=== PATIENT | male | born 1945 | race Caucasian/White ===

== ENCOUNTER 2017-06-25 04:14 | Inpatient (IN) | payer BC, OTHER ==
[2017-06-25] VITALS (7 sets, daily range): BP systolic 93–128; BP diastolic 48–72
[~2017-06-25] VITALS: Ht 182.9 cm; Wt 76.1 kg
--- NOTE | ~2017-06-25 | 2DMMODE ---
[facility] [address] [place] [address] 2 D/M-MODE ECHOCARDIOGRAM Name: TORRESRIN HINTON Room #: 214-P ADM IN M.R.#: [id number] Admission: 06/25/17 Attend Phys: Priscilla Bauer Discharge: Date of : 47 Date of Service: 06/25/17 1201 Report #: [id number] THIS REPORT FOR: //name// APPROVED REPORT Study performed: 06/25/2017 10:53:44 EXAM: Comprehensive 2D, Doppler, and color-flow Echocardiogram Patient Location: Echo lab Room #: 214 Status: routine BSA: 2.01 HR: 81 bpm BP: 125/65 mmHg Rhythm: Atrial Fibrillation Other Information Study Quality: Good Indications Atrial Fibrillation Hx: CO, CABG, CVA, COPD, PVD 2D Dimensions RVDd: 31.05 mm LVEF(%): 67.00 (>50%) IVSd: 11.05 (7-11mm) LVOT Diam: 22.22 (18-24mm) LVDd: 50.13 mm PWd: 11.25 (7-11mm) Ascending Ao: 36.12 (22-36mm) LVDs: 31.45 (25-40mm) Aortic Root: 34.51 mm Quarles's LVEF: 67.00 % Volumes Left Atrial Volume (Systole) Single Plane 4CH: 68.85 mL Single Plane 2CH: 90.09 mL LA ESV Index: 42.00 mL/m2 Aortic Valve AoV Peak David.: 1.33 m/s AO Peak Gr.: 7.09 mmHg LVOT Max P.76 mmHg LVOT Max V: 0.83 m/s COREY Vmax: 2.42 cm2 Mitral Valve MV Decel. Time: 181.08 ms [facility] [place] [address] 2 D/M-MODE ECHOCARDIOGRAM Name: MACDONALDRIN ROANOKE Room #: 214[facility] IN M.R.#: [id number] Admission: 06/25/17 Attend Phys: Priscilla Bauer Discharge: Date of : 47 Date of Service: 06/25/17 1201 Report #: [id number] E Max David.: 1.04 m/s IVRT: 87.66 ms Pulmonary Valve PV Peak David.: 0.78 m/s PV Peak Gr.: 2.46 mmHg Tricuspid Valve TR Peak David.: 2.25 m/s RAP Estimate: 5.00 mmHg TR Peak Gr.: 20.33 mmHg PA Pressure: 25.00 mmHg Left Ventricle The left ventricle is normal size. There is normal LV segmental wall motion. There is normal left ventricular wall thickness. Left ventricular systolic function is normal. LVEF is 55-60%. This study is not technically sufficient to allow evaluation of the LV diastolic function due to atrial fibrillation. Right Ventricle The right ventricle is normal size. The right ventricular systolic function is normal. Atria Left atrium is mild to moderately dilated. Right atrium is at the upper limits of normal. Aortic Valve Aortic valve leaflets are mildly thickened and calcified. No aortic regurgitation is present. There is no aortic valvular stenosis. Mitral Valve Mild to moderate mitral annular calcification. Mild mitral regurgitation. Tricuspid Valve The tricuspid valve is normal in structure. Mild tricuspid regurgitation. Estimated PAP is 25-30mmHg. Pulmonic Valve The pulmonary valve is normal in structure. Trace pulmonic regurgitation. Great Vessels The aortic root is normal in size. The ascending aorta is normal in size. IVC is normal in size and collapses >50% with [facility] [address] [place] [address] 2 D/M-MODE ECHOCARDIOGRAM Name: TORRESRIN MARY JANE Room #: 214-P [facility] IN M.R.#: [id number] Admission: 06/25/17 Attend Phys: Priscilla Bauer Discharge: Date of : 47 Date of Service: 06/25/17 1201 Report #: [id number] inspiration. Pericardium There is no pericardial effusion. <Conclusion> Left ventricular systolic function is normal. There is normal LV segmental wall motion. LVEF is 55-60%. Both atria are moderately dilated. Aortic valve leaflets are mildly thickened and calcified. No aortic regurgitation or stenosis. Mild to moderate mitral annular calcification. Mild mitral regurgitation. Mild tricuspid regurgitation. Estimated pulmonary artery pressure of 25-30mmHg. There is no pericardial effusion. <ELECTRONICALLY SIGNED> By: Severo Bhat MD, [facility] 06/25/17 1201 120 120 Severo Bhat MD, FACC /INF
--- NOTE | ~2017-06-25 | CATHLAB ---
[facility] [address] [place] [address] INVASIVE PROCEDURE REPORT Name: RIN MACDONALD Room #: 214-P ADM IN M.R.#: [id number] Admission: 06/25/17 Attend Phys: Priscilla Bauer Discharge: Date of : 47 Date of Service: 06/26/171953 Report #: [id number] THIS REPORT FOR: //name// APPROVED REPORT Patient Details Patient Status: In-Patient Room #: The patient is a 72 year-old male Event Personnel Gopal Aguirre [employer] Food Service Supervisor, Shira Campbell, Edgar Spicer RN, Jane Summers RTR, SUPERVISOR RESEARCH SHOP Scrub Procedures Performed 02010 Initial Mod Sed Same Phys/QHP Gr5y 572597 Left Heart Cath Coronaries, Bypass Grafts [id number] LHCCORCABG Hemostasis with Manual pressure Procedure Narrative The patient was brought urgently to the Cardiac Catheterization Laboratory and was prepped and draped in a sterile manner. A 5F 11CM CORDIS sheath was inserted into the right femoral artery. Coronary angiography was performed using coronary diagnostic catheters. The right coronary system was accessed and visualized with a JR 4 catheter. The left coronary system was accessed and visualized with a JL 4 catheter. The left ventricle was accessed and visualized with a Pigtail catheter. Left ventricular/Aortic Valve gradient assessed via catheter pullback. Left ventriculogram was performed in AGEE projection. Hemostasis was obtained with manual pressure following sheath removal without any complications. The patient tolerated the procedure well and there were no complications associated with the procedure. There was no hematoma. Intraoperative Conscious Sedation Sedation start time: 07:44 Case end Time: 09:38 Fentanyl 75.0 mcg Versed 4.0 mg Conscious Sedation time and total contrast amout is the total of peripheral procedure performed by Dr. Gonzales and Cardiac cath performed by Dr. Aguirre. Fluoro Time: 9.40 minutes Dose: DAP 7502.80 cGycm2 836 mGy Contrast Type and Amount: Visipaque 285 ml [facility] [address] [place] [address] INVASIVE PROCEDURE REPORT Name: RIN MACDONALD Room #: 214-P [facility] IN .R.#: [id number] Admission: 06/25/17 Attend Phys: Priscilla Bauer Discharge: Date of : 47 Date of Service: 06/26/171953 Report #: [id number] Hemodynamics The aortic pressure is 189/66 mmHg with a mean of 73 mmHg. The left ventricular pressure is 157/5 mmHg with a mean of mmHg. The left ventricular end diastolic pressure is 19 mmHg. PCI Technique Lesion Percutaneous coronary intervention was performed on the Common Femoral. Conclusion #1 normal left ventricular size with subtle inferior basilar hypokinesis EF is 50-55% #2 there is trivial filling of the [place] left system high-grade left main and proximally occluded circumflex and LAD a few septal perforators are filling #3 [place] right coronary artery occluded #4 MENENDEZ to LAD is intact filling to diffusely diseased LAD which extends around the apex. #5 large vein graft with mild disease filling a diagonal OM branch sequentially no significant occlusive disease #6 large graft patent to the PDA retrograde filling the distal RCA and posterior lateral branch with mild irregularity Recommendations and plan continue aggressive risk factor modification there is no indication for coronary intervention. Has had peripheral intervention at this setting transfer to CCU in stable but guarded condition to continue post peripheral stent protocol. Hemodynamically stable See Dr. Gonzales's peripheral intervention note. <ELECTRONICALLY SIGNED> By: Gopal Aguirre MD, FACC 06/26/171953 53 53 Gopal Aguirre MD, FACC /INF
--- NOTE | ~2017-06-25 | EKG ---
[address] [place] [address] ELECTROCARDIOGRAM REPORT Name: RIN MACDONALD Room #: 214-P ADM IN M.R.#: [id number] Admission: 06/25/17 Attend Phys: Priscilla Price Discharge: Date of : 47 Report #: [id number] THIS REPORT FOR: //name// [facility] ED Test Date: 2017-06-25 Test Time: 04:31:55 Pat Name: RIN MACDONALD Department: Room: 214 Gender: M Electrician Constructor Supervisor: QUENTIN : 1945 Requested By: Cyndi Ortega Order Number: [id number] MD: Severo Bhat Measurements Intervals [place] Rate: 77 P: DE: QRS: -15 QRSD: 100 T: -3 QT: 382 QTc: 433 Interpretive Statements Atrial fibrillation Borderline T abnormalities, inferior leads Compared to ECG 05/09/2015 11:39:39 Sinus rhythm no longer present Electronically Signed On 06-26-2017 8:50:59 OPTIMIZATION CONSULTANT by Seevro Bhat [email or web address] <ELECTRONICALLY SIGNED> By: Severo Bhat MD, [facility] 06/26/17 0850 0431 0 Severo Bhat MD, FACC /EPI
--- NOTE | ~2017-06-25 | EKG ---
[address] [address] ELECTROCARDIOGRAM REPORT Name: RIN MACDONALD Room #: 214-P ADM IN M.R.#: [id number] Admission: 06/25/17 Attend Phys: Priscilla Price Discharge: Date of : 47 Report #: [id number] THIS REPORT FOR: //name// [facility] ED Test Date: 2017-06-25 Test Time: 06:47:24 Pat Name: RIN MACDONALD Department: Room: 214 Gender: M Commercial Construction Project Manager: MAHAMED : 1945 Requested By: José Miguel Swift Order Number: [id number] MD: Alexander Finch Measurements Intervals [place] Rate: 108 P: SC: QRS: -17 QRSD: 99 T: 28 QT: 340 QTc: 456 Interpretive Statements Atrial fibrillation Paired ventricular premature complexes Borderline left axis deviation Compared to ECG 05/09/2015 11:39:39 Ventricular premature complex(es) now present Sinus rhythm no longer present Electronically Signed On 06-25-2017 8:12:09 SIEBEL CRM DEVELOPER by Alexander Finch [email or web address] <ELECTRONICALLY SIGNED> By: Alexander Finch MD 06/25/17811 6 6 Alexander Finch MD /ANNIKA
[~2017-06-25 04:14] MED LIST: ANALGESIC325 MG PO; APAP650 PO; APHEN325 MG PO; ASPIRIN BUFFER325 MG PO; ASPIRIN325 PO; ATENOLOL 50MG T50 MG PO; BENICAR PO; BENICAR20 MG PO; BYSTOLIC10 MG PO; CENTRUM SILVER1 EAC1 PO; CLONAZEPAM PO; COMBIVENT INH; CRESTOR PO; CRESTOR10 MG PO; FENOFIBRATE145 MG; FENOFIBRATE145 MG PO; FISH OIL 1,0001 EAC5 PO; FLEXERIL PO; GLYCOTROL CAPS1 EACH PO; HYTRIN 5 M5 MG/1 CAP PO; K-DUR 20 MEQ T20 MEQ PO; KLOR-CON PO; LASIX 40 MG TAB40 M1 PO; LASIX PO; LORTAB OR; NABUMETONE PO; NITROSTAT0.3 MG SL; NORCO 5-325 TA1 EACH PO; OMEGA-31000 MG PO; PERCOCET 5-3251 EACH PO; PERCOCET PO; PLAVIX 75 MG TA75 MG PO; PROTONIX40 M2 PO; R-TANNA PO; RESTORIL7.5 MG PO; SPIRIVA IH; TERAZOSIN; TERAZOSIN PO; TRICOR PO; TRICOR145 MG PO; VASCEPA1 GM PO; VICODIN ES TAB1 EACH PO; VITAMIN E 400I400 IU PO; VITCB500GO PO
[2017-06-25] MEDS ORDERED: PLAVIX 75 MG TA75 M1 PO (04:30)
[2017-06-25] MEDS ORDERED: ASPIRIN325 PO (04:32)
[2017-06-25 04:54] LABS: HEMATOCRIT 30.7 % (42.0-52.0); HEMOGLOBIN 10.8 gm/dL (14.0-18.0); MCH 36.1 pg (26.0-34.0); MCHC 35.3 g/dL (28.0-37.0); MCV 102.4 fL (80.0-100.0); PLATELET COUNT 181 thou/uL (150-400); RDW 12.5 % (10.5-14.5); WBC 5.1 thou/uL (4.0-11.0)
[2017-06-25 04:59] LABS: ANION GAP 9 mmol/L (7-16); BUN 16 mg/dL (7-18); CALCIUM 8.6 mg/dL (8.5-10.1); CHLORIDE 98 mmol/L (98-107); CO2 25 mmol/L (21-32); CREATININE 1.4 mg/dL (0.7-1.3); GLUCOSE 72 mg/dL (74-106); POTASSIUM 4.3 mmol/L (3.5-5.1); SODIUM 132 mmol/L (136-145)
[2017-06-25 05:06] LABS: APTT 29.8 Seconds (24.5-32.8); INR 1.1; PROTIME 10.8 Seconds (9.3-11.4)
[2017-06-25 05:07] LABS: TROPONIN-I < 0.04 ng/mL (<0.06)
[2017-06-25 05:50] LABS: ABSOLUTE NEUTROPHILS 2.3 thou/uL (1.4-8.2); ATYPICAL LYMPHS 1 %; MACROCYTES 2+
[2017-06-25 08:44] LABS: CHOLESTEROL 110 mg/dL (<200); HDL CHOLESTEROL 30 mg/dL (>40); LDL CHOLESTEROL 35 mg/dL (<100); TC:HDL 3.7 Ratio (Not establshd); TRIGLYCERIDE 226 mg/dL (<150); VLDL 45 mg/dL (<40)
[2017-06-26] VITALS (12 sets, daily range): BP systolic 116–153; BP diastolic 56–167
[2017-06-27] VITALS: BP 125/60
[2017-06-27 03:50] VITALS: BP 114/41
[2017-06-27 04:10] LABS: HEMATOCRIT 30.7 % (42.0-52.0); HEMOGLOBIN 10.8 gm/dL (14.0-18.0); MCH 35.9 pg (26.0-34.0); MCHC 35.1 g/dL (28.0-37.0); MCV 102.2 fL (80.0-100.0); RDW 12.6 % (10.5-14.5); WBC 8.3 thou/uL (4.0-11.0)
[2017-06-27 04:17] LABS: CALCIUM 8.7 mg/dL (8.5-10.1); CREATININE 1.4 mg/dL (0.7-1.3); POTASSIUM 3.4 mmol/L (3.5-5.1)
[2017-06-27 07:18] VITALS: BP 140/64
[2017-06-27] MEDS ORDERED: PRADAXA150 MG PO (08:19)
[2017-06-27] MEDS ORDERED: ATENOLOL 50MG T50 M1 PO (08:19)
[2017-06-27] MEDS ORDERED: PACERONE 200 M200 M1 PO (08:19)
[2017-06-27 10:12] VITALS: BP 140/64
[2017-06-27 10:57] VITALS: BP 135/61
[2017-06-28] MEDS ORDERED: KEFLEX500 M1 PO (09:20)
[2017-06-28] MEDS ORDERED: ULTRAM 50MG TAB50 MG PO (09:24)
== END 2017-06-27 12:06 | disposition home or self-care (01) | DRG 254 ==
LOC: ER 04:14 → 2N 07:14 → EROBS 07:14 → 2N 07:58 → ENTRNSPT 06-27 11:39 → EDTRNSPTSTS 06-27 11:42 → 2N 06-27 12:06
PROVIDERS: Emergency Medicine; Hospitalist; Internal Medicine Cardiovascular Disease
PROC: B4161ZZ Fluoroscopy of Right Renal Artery using Low Osmolar Contrast (ICD-10-PCS; principal; 2017-06-26)
PROC: 047H3DZ Dilation of Right External Iliac Artery with Intraluminal Device, Percutaneous Approach (ICD-10-PCS; principal; 2017-06-26)
PROC: 4A023N7 Measurement of Cardiac Sampling and Pressure, Left Heart, Percutaneous Approach (ICD-10-PCS; 2017-06-26)
PROC: B2181ZZ Fluoroscopy of Left Internal Mammary Bypass Graft using Low Osmolar Contrast (ICD-10-PCS; 2017-06-26)
PROC: B2111ZZ Fluoroscopy of Multiple Coronary Arteries using Low Osmolar Contrast (ICD-10-PCS; 2017-06-26)
PROC: B2151ZZ Fluoroscopy of Left Heart using Low Osmolar Contrast (ICD-10-PCS; 2017-06-26)
DX: I73.9 Peripheral vascular disease, unspecified (principal); I48.91 Unspecified atrial fibrillation; E78.5 Hyperlipidemia, unspecified; J44.9 Chronic obstructive pulmonary disease, unspecified; I10 Essential (primary) hypertension; G25.81 Restless legs syndrome; F17.210 Nicotine dependence, cigarettes, uncomplicated; E78.00 Pure hypercholesterolemia, unspecified; I25.10 Atherosclerotic heart disease of native coronary artery without angina pectoris; Z95.1 Presence of aortocoronary bypass graft; Z86.73 Personal history of transient ischemic attack (TIA), and cerebral infarction without residual deficits; Z90.49 Acquired absence of other specified parts of digestive tract; I25.2 Old myocardial infarction; Z87.11 Personal history of peptic ulcer disease; Z79.899 Other long term (current) drug therapy; Z88.8 Allergy status to other drugs, medicaments and biological substances; Z71.6 Tobacco abuse counseling
CPT/HCPCS: 10194

== ENCOUNTER 2017-06-28 06:44 | Emergency (ER) | payer BC, OTHER ==
[~2017-06-28] VITALS: Ht 182.9 cm; Wt 79.4 kg
[~2017-06-28 06:44] MED LIST changes: +ATENOLOL 50MG T50 M1 PO; +PACERONE 200 M200 M1 PO; +PLAVIX 75 MG TA75 M1 PO; +PRADAXA150 MG PO
[2017-06-28 06:59] VITALS: BP 134/96
[2017-06-28 07:42] LABS: HEMATOCRIT 28.7 % (42.0-52.0); HEMOGLOBIN 9.9 gm/dL (14.0-18.0); MCH 35.3 pg (26.0-34.0); MCHC 34.6 g/dL (28.0-37.0); PLATELET COUNT 172 thou/uL (150-400); RBC 2.81 mil/uL (4.50-6.00); RDW 12.7 % (10.5-14.5); WBC 5.4 thou/uL (4.0-11.0)
[2017-06-28 07:48] LABS: CALCIUM 8.3 mg/dL (8.5-10.1); CREATININE 1.3 mg/dL (0.7-1.3); POTASSIUM 3.6 mmol/L (3.5-5.1)
[2017-06-28 07:54] LABS: ALBUMIN 3.5 g/dL (3.4-5.0); DIRECT BILIRUBIN 0.2 mg/dL (<0.1-0.3); MAGNESIUM 1.8 mg/dL (1.8-2.4); TOTAL BILIRUBIN 0.4 mg/dL (<0.1-1.0); TOTAL PROTEIN 6.4 g/dL (6.4-8.2)
[2017-06-28 08:00] LABS: APTT 58.5 Seconds (24.5-32.8); INR 1.2
[2017-06-28 08:43] LABS: ABSOLUTE NEUTROPHILS 3.9 thou/uL (1.4-8.2)
[2017-06-28 08:44] LABS: PLATELET ESTIMATE NORMAL
[2017-06-28] MEDS ORDERED: KEFLEX500 M1 PO (09:20)
[2017-06-28] MEDS ORDERED: ULTRAM 50MG TAB50 MG PO (09:24)
== END 2017-06-28 09:55 | disposition home or self-care (01) ==
LOC: ER 06:44
PROVIDERS: Emergency Medicine
DX: M79.605 Pain in left leg (principal); M79.604 Pain in right leg; I73.9 Peripheral vascular disease, unspecified; E78.5 Hyperlipidemia, unspecified; I10 Essential (primary) hypertension; J44.9 Chronic obstructive pulmonary disease, unspecified; I21.9 Acute myocardial infarction, unspecified; F17.210 Nicotine dependence, cigarettes, uncomplicated; Z90.49 Acquired absence of other specified parts of digestive tract; Z88.8 Allergy status to other drugs, medicaments and biological substances

== ENCOUNTER 2017-09-06 14:35 | Emergency (ER) | payer BC, OTHER ==
[~2017-09-06] VITALS: Ht 182.9 cm; Wt 79.4 kg
[~2017-09-06 14:35] MED LIST changes: +KEFLEX500 M1 PO; +ULTRAM 50MG TAB50 MG PO
[2017-09-06] MEDS ORDERED: PACERONE 200 M200 M1 PO (14:54)
[2017-09-06] MEDS ORDERED: CRESTOR20 MG PO (14:56)
[2017-09-06 16:40] VITALS: BP 131/54
== END 2017-09-06 16:41 | disposition home or self-care (01) ==
LOC: ER 14:35
DX: I83.015 Varicose veins of right lower extremity with ulcer other part of foot (principal); I10 Essential (primary) hypertension; J44.9 Chronic obstructive pulmonary disease, unspecified; I25.2 Old myocardial infarction; Z95.1 Presence of aortocoronary bypass graft; F17.210 Nicotine dependence, cigarettes, uncomplicated

== ENCOUNTER → 2017-11-22 | Outpatient (CLI) | payer BC, OTHER ==
[~2017-11-22] MED LIST changes: +CRESTOR20 MG PO
[2017-11-22 09:43] LABS: CALCIUM 8.4 mg/dL (8.5-10.1); CREATININE 1.2 mg/dL (0.7-1.3); POTASSIUM 4.6 mmol/L (3.5-5.1)
== END ==
LOC: CAT 08:48
PROVIDERS: Nuclear Medicine Nuclear Cardiology
DX: Z01.812 Encounter for preprocedural laboratory examination (principal); I65.23 Occlusion and stenosis of bilateral carotid arteries; I25.10 Atherosclerotic heart disease of native coronary artery without angina pectoris; I77.1 Stricture of artery

== ENCOUNTER 2018-03-05 02:50 | Emergency (ER) | payer BC, OTHER ==
[~2018-03-05] VITALS: Ht 182.9 cm; Wt 77.7 kg
--- NOTE | ~2018-03-05 | EKG ---
[place] [address] [facility] [place] [address] ELECTROCARDIOGRAM REPORT Name: RIN MACDONALD [id number] Admission: 03/05/18 Attend Phys: Discharge: 03/05/18 Date of : 47 Report #: [id number] THIS REPORT FOR: //name// [facility] ED Test Date: 2018-03-05 Test Time: 03:35:54 Pat Name: RIN MACDONALD Department: Room: Gender: M Terminal System Operator: g : 1945 Requested By: Ni Clark Order Number: [id number] MD: Severo Bhat Measurements Intervals [place] Rate: 55 P: 14 WI: 217 QRS: -21 QRSD: 120 T: -1 QT: 497 QTc: 476 Interpretive Statements Sinus bradycardia Borderline prolonged WI interval Nonspecific intraventricular conduction delay Nonspecific ST and T wave abnormality Baseline wander in lead(s) V1 Compared to ECG 06/25/2017 06:47:24 Sinus rhythm has replaced atrial fibrillation Electronically Signed On 03-05-2018 9:18:04 CDT by Severo Bhat [email or web address] <ELECTRONICALLY SIGNED> By: Severo Bhat MD, FACC 03/05/18 0918 0335 0335 Severo Bhat MD, FAC /EPI
[2018-03-05 04:12] LABS: ABSOLUTE NEUTROPHILS 2.8 thou/uL (1.4-8.2); HEMATOCRIT 28.3 % (42.0-52.0); LYMPHOCYTES 18.1 % (24.0-44.0); MCH 37.4 pg (26.0-34.0); MCHC 35.5 g/dL (28.0-37.0); MCV 105.4 fL (80.0-100.0); MONOCYTES 10.6 % (1.0-8.0); PLATELET COUNT 139 thou/uL (150-400); POLYS 63.3 % (36.0-66.0); RBC 2.68 mil/uL (4.50-6.00); RDW 14.1 % (10.5-14.5); WBC 4.4 thou/uL (4.0-11.0)
[2018-03-05 04:21] LABS: ANION GAP 9 mmol/L (7-16); BUN 10 mg/dL (7-18); CALCIUM 8.6 mg/dL (8.5-10.1); CHLORIDE 99 mmol/L (98-107); CO2 23 mmol/L (21-32); CREATININE 1.2 mg/dL (0.7-1.3); GLUCOSE 111 mg/dL (74-106); POTASSIUM 4.5 mmol/L (3.5-5.1); SODIUM 131 mmol/L (136-145)
[2018-03-05 04:30] LABS: TROPONIN-I <0.06 ng/mL (<0.06)
[2018-03-05 05:07] VITALS: BP 156/58
== END 2018-03-05 05:27 | disposition home or self-care (01) ==
LOC: ER 02:50
PROVIDERS: Student in an Organized Health Care Education/Training Program
DX: R20.2 Paresthesia of skin (principal); F17.210 Nicotine dependence, cigarettes, uncomplicated; E78.5 Hyperlipidemia, unspecified; I10 Essential (primary) hypertension; J44.9 Chronic obstructive pulmonary disease, unspecified; G25.81 Restless legs syndrome; I73.9 Peripheral vascular disease, unspecified; Z88.8 Allergy status to other drugs, medicaments and biological substances; Z90.49 Acquired absence of other specified parts of digestive tract; Z86.73 Personal history of transient ischemic attack (TIA), and cerebral infarction without residual deficits; Z95.5 Presence of coronary angioplasty implant and graft

== ENCOUNTER → 2018-10-02 | Outpatient (CLI) | payer OTHER ==
[2018-10-02 11:36] LABS: CREATININE 1.4 mg/dL (0.7-1.3)
== END ==
LOC: CAT 10:33
PROVIDERS: Internal Medicine Cardiovascular Disease
DX: I72.4 Aneurysm of artery of lower extremity (principal); I71.4 Abdominal aortic aneurysm, without rupture; N26.1 Atrophy of kidney (terminal)

== ENCOUNTER 2018-10-27 05:30 | Inpatient (IN) | payer OTHER ==
[2018-10-21 10:57] LABS: ABSOLUTE NEUTROPHILS 4.3 thou/uL (1.4-8.2); BASOPHILS 0.6 % (0.0-2.0); EOSINOPHILS 2.7 % (0.0-3.0); HEMATOCRIT 32.6 % (42.0-52.0); HEMOGLOBIN 11.3 gm/dL (14.0-18.0); LYMPHOCYTES 18.1 % (24.0-44.0); MCH 35.4 pg (26.0-34.0); MCHC 34.8 g/dL (28.0-37.0); MCV 101.6 fL (80.0-100.0); MONOCYTES 11.1 % (1.0-8.0); PLATELET COUNT 163 thou/uL (150-400); POLYS 67.5 % (36.0-66.0); RBC 3.21 mil/uL (4.50-6.00); RDW 13.1 % (10.5-14.5); WBC 6.3 thou/uL (4.0-11.0)
[2018-10-21 10:59] LABS: URINE BILIRUBIN NEGATIVE (Negative); URINE BLOOD 1+ (Negative); URINE CLARITY CLEAR; URINE COLOR YELLOW; URINE GLUCOSE-RANDOM* NEGATIVE (Negative); URINE KETONES NEGATIVE (Negative); URINE LEUKOCYTES-REFLEX NEGATIVE (Negative); URINE NITRITE-REFLEX NEGATIVE (Negative); URINE PROTEIN (DIPSTICK) 2+ (Negative); URINE SPECIFIC GRAVITY 1.015 (1.005-1.035); URINE UROBILINOGEN 0.2 E.U./dl (0.2-1.0)
[2018-10-21 11:10] LABS: APTT 27.7 Seconds (24.5-32.8); PROTIME 10.3 Seconds (9.3-11.4)
[2018-10-21 11:11] LABS: BACTERIA-REFLEX 1-9 Few /HPF (None Seen); CASTS None Seen /LPF (None Seen); CRYSTALS None Seen /LPF (None Seen); MUCUS 0-3 Light strn/LPF (None Seen); SQUAMOUS 4-10 Moderate /LPF (0-3); URINE RBC 3-10 Few /HPF (0-2); URINE WBC-REFLEX 0-5 Rare /HPF (0-5)
[2018-10-21 11:16] LABS: ALBUMIN 3.5 g/dL (3.4-5.0); CALCIUM 8.9 mg/dL (8.5-10.1); CREATININE 1.3 mg/dL (0.7-1.3); POTASSIUM 4.3 mmol/L (3.5-5.1); TOTAL BILIRUBIN 0.3 mg/dL (<0.1-1.0); TOTAL PROTEIN 6.5 g/dL (6.4-8.2)
--- NOTE | 2018-10-21 17:00 | EKG ---
[place] [address] [facility] [place] [address] ELECTROCARDIOGRAM REPORT Name: TORRESRIN HINTON Room #: PRE IN .R.#: [id number] ������������������ Admission: ������������������ Attend Phys: Jefferson Mcintyre MD Discharge: ������������������ Date of : 47 Report #: [id number] ����������������������������������������������������������������� [id number] THIS REPORT FOR: //name// [facility] Test Date: 2018-10-21 Test Time: 10:51:14 Pat Name: RIN MACDONALD Department: Room: Gender: M Medical Device: chrissie hopkins : 1945 Requested By: Jefferson Mcintyre Order Number: [id number] MD: Severo Bhat Measurements Intervals [place] Rate: 58 P: 11 UT: 204 QRS: -39 QRSD: 121 T: -19 QT: 470 QTc: 462 Interpretive Statements Sinus bradycardia with first-degree AV block Nonspecific intraventricular conduction delay Compared to ECG 03/05/2018 03:35:54 No significant change was found Electronically Signed On 10-21-2018 17:00:43 CDT by Severo Bhat [email or web address] ��������������������������������������������� <ELECTRONICALLY SIGNED> ���������������������������������������� By: Severo Bhat MD, [facility] ��������������������������������������������� 10/21/18 1700 1051 105 Severo Bhat MD, [facility] /EPI
[2018-10-27] VITALS (21 sets, daily range): BP systolic 86–161; BP diastolic 36–92
[~2018-10-27] VITALS: Ht 182.9 cm; Wt 81.6 kg
[~2018-10-27 05:30] MED LIST changes: +ASPIR 8181 MG PO; +BENICAR40 MG PO; +CENTRUM SILVER1 EAC4 PO; +[UNRECOGNIZED DRUG - CODE] PO
--- NOTE | 2018-10-27 17:38 | NUR ---
PT IS SLEEPY WITH POST SURGERY . POST AORTIC GRAFT STENT. RIGHT RADIAL ART LINE. GROIN SITE DRY AND INTACT BILATERAL NO BLEEDING OR HEMATOMA NOTED. LUNGS ARE CLEAR. ABDOMEN IS SOFT BOWEL SOUNDS HYPOACTIVE. SINUS RHYTHM ON THE INVESTMENT ASSOCIATE. PT TEMP 94 WARMING BLANKET ON PT AT THIS TIME. VENCES TO DD WITH DEEPAK URINE PRESENT. VS STABLE. AT BEDSIDE VISITING WILL CONTINUE TO MONITOR AND ASSESS PER NURSING
[2018-10-28] VITALS (12 sets, daily range): BP systolic 113–165; BP diastolic 36–67
--- NOTE | 2018-10-28 05:00 | NUR ---
PT REMAINS A&OX1-2. PT SR ON MONITOR. PT HAS BEEN PROGRESSIVELY BECOMMING MORE IMPULSIVE, FIGITY, AGITATED, RESTLESS, ANXIOUS. PT PULLED OUT A-LINE. HAS BEEN PICKING OFF TELE PATCHES. DEAN GROIN SITES FROM AAA REPAIR REMAIN CDI, SOFT BUT BRUISING, PT PEDAL PULSES 1+. PT HAD BEEN ON AND OFF CARDENE GTT TONIGHT. CONTINUES ON NS IV MAINTENANCE.
[2018-10-28 05:27] LABS: HEMATOCRIT 28.7 % (42.0-52.0); HEMOGLOBIN 9.8 gm/dL (14.0-18.0); MCH 35.3 pg (26.0-34.0); MCHC 34.2 g/dL (28.0-37.0); MCV 103.5 fL (80.0-100.0); RBC 2.78 mil/uL (4.50-6.00); RDW 13.4 % (10.5-14.5); WBC 9.7 thou/uL (4.0-11.0)
[2018-10-28 05:47] LABS: CALCIUM 7.9 mg/dL (8.5-10.1); CREATININE 1.4 mg/dL (0.7-1.3); POTASSIUM 4.9 mmol/L (3.5-5.1)
--- NOTE | 2018-10-28 07:00 | NUR ---
PT IS CONFUSED TRYING TO GET OUT OF BED . IMPULSIVE AND FEDGETY THIS AM. HE STATES HE IS AT A HOTEL AND IS REORIENTATION GIVEN BUT INSIST ON IMPULSIVELY GETTING OUT OF BED WHEN INSTRUCTED HE IS AT THE HOSPITAL. NOTIFIED DR. LONDON AND RESTRAINT ORDER OBTAINED AND PLACED HIM IN DUE FOR HIS SAFETY AT THIS TIME. REORIENTATION DONE NOTIFIED OF RESTRAINTS FOR HIS SAFETY AND SHE IS COMING TO SEE HIM THIS AM. STATES HIS IS DOWN IN THE KITCHEN . RN REOIENTED PT THAT HE IS IN HOSPITAL AND SHE IS COMING TO VISIT HIM.
--- NOTE | 2018-10-28 15:22 | NUR ---
PT ADMITTED RELATED TO S/P AAA STENT IMPLANT; POST OP DELIRIUM/CONFUSION. CM REVIEWED CHART AND SPOKE WITH CARE TEAM. CM MET WITH PT AT BEDSIDE THIS DAY. PT IS A&O X4. CM ROLE INTRODUCED. PT AND SPOUSE INDICATED THAT THEY LIVE IN A SPLIT LEVEL HOUSE WITH 6 STEPS TO ENTER AND TWO SETS OF 6 STEPS INSIDE. 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 THEY INDICATED NO HOME HEALTH HISTORY. PT IS S/P AAA AND IS HAVING SOME CONFUSION HE IS CURRENTLY IN REST[place]INTS. PLAN IS FOR PT TO RETURN HOME ONCE MEDICALLY STABLE. CM TO FOLLOW INDICATED WITH DC PLANNING.
--- NOTE | 2018-10-28 16:31 | NUR ---
PT IS ALERT TO SELF AND TIME. WITH CONFUSION AT PLACE. IS IMPULSIVE TRIES TO GET OUT OF BED. AT BEDSIDE WITH PT. REORIENTATION GIVEN TO PT PER NURSING. FORGETFULL AND CONFUSED AND IMPULSIVE. REMAINS IN [place] FOR PT SAFETY AT THIS TIME. LUNGS ARE CLEAR. SINUS RHYTHM ON THE MONITOR. ON A CARDIAC DIET. VENCES TO DD WITH DEEPAK URINE PRESENT. GROIN SITES DRESSSING DRY INTACT WITH BILATERAL BRUISING NOTED. WILL CONTINUE TO ASSES AND MONITOR PER NURSING
[2018-10-29] VITALS (21 sets, daily range): BP systolic 122–182; BP diastolic 49–73
--- NOTE | 2018-10-29 00:26 | NUR ---
PT VENCES CATHETER REMOVED. PT TOLERATED WELL
--- NOTE | 2018-10-29 01:56 | NUR ---
POST VENCES CATHETER REMOVAL VOID COMPLETE 225ML URINE OUT WITHOUT DIFFICULTY
--- NOTE | 2018-10-29 04:23 | NUR ---
PT CURRENTLY RESTING IN BED. REMAINS A&O X 1-2. PT SR ON MONITOR. PT HAS HAD A COUPLE ELEVATED BP READINGS BUT ALSO AT TIMES OF RESTLESSNESS. PT AFEBRILE. PT REMAINS ON 2L NC SATS 98%. CONTINUES WITH MAINTENANCE IVFs. PT VOIDING PER URINAL NOW. DEAN GROIN SITES REMAIN SOFT WITH DSG INTACT OLD DRIED DRAINAGE AND SURROUNDING BRUISING. NO C/O PAIN DURING SHIFT.
--- NOTE | 2018-10-29 13:46 | NUR ---
Pt dcing home today with outpt f/u. Therapy evals reviewed. Pt to use rollar walker at home and they do have one. They have a modified shower with a bench as well. Pt's feels pt is close to his functional and cognitive baseline. HH referral declined. Encouragement given to contact his pcp office for f/u appt and should he have ongoing weakness or confusion at home. Case discussed with nursing. Pt to f/u with CTS as an outpt as well. Case closed.
--- NOTE | 2018-10-29 16:32 | NUR ---
Pt was discharged home today. Pt was evaluated by speech therapist, PT and OT. Ryann from case management also came by and visited with patient and his about discharge needs. Pt has tolerated being up in the chair and ambulated with PT. Maintaining O2 sat on room air. Voiding without difficulty. No report of pain. Bilateral groin incisions are intac No apparent bleeding or hematoma. Reviewed discharge instructions with the patient and his . Both verbalized understanding. Pt discharged home. Pt escorted in wheelchair to car by charge nurse Martha Lockwood. See discharge information.
--- NOTE | 2018-11-02 09:01 | O ---
[facility] [place] [address] OPERATIVE REPORT Name: RIN MACDONALD Room #: 245-P [facility] IN M.R.#: [id number] Admission: 10/27/18 ������������������ Attend Phys: Jefferson Mcintyre MD Discharge: 10/29/18 ������������������ Date of : 47 Report #: [id number] THIS REPORT FOR: //name// CC: Jefferson Mackey DATE OF SERVICE: 10/27/2018 PREOPERATIVE DIAGNOSIS: Abdominal aortic aneurysm. POSTOPERATIVE DIAGNOSIS: Abdominal aortic aneurysm. OPERATION: Stent graft implant to treat infrarenal abdominal aortic aneurysm. SURGEON: Jefferson Mcintyre MD and Dr. Chuy Gonzales. ANESTHESIA: General. INDICATIONS: The patient is a 73-year-old who 18 years ago had an AneuRx stent graft implant for an infrarenal abdominal aortic aneurysm. This stent graft has migrated over time, and the proximal portion is no longer in contact with the vessel wall creating an obvious type 1 leak, but essentially leaving an untreated aneurysm. The patient has also lost the flow in the left renal artery due to the previous stent graft implant, which is ironic now that the graft has migrated distally. Peripherally as well, the patient has important calcific atherosclerotic disease and the femoral arteries appear aneurysmal. TECHNIQUE: After general anesthesia was established, incisions were made in the groins to expose the femoral arteries. The previous operative note states that a patch graft was done after a femoral endarterectomy on the left, but my direct observation suggests that this procedure was done on the right side. On the right side, because of the prosthetic patch graft and the extent of the previous dissection and procedure, we chose to place a pursestring in the patch and used the small sheath through this pursestring. On the left side, the common femoral was a bit aneurysmal with intense scarring and the superficial femoral artery, although calcific, appeared to be of satisfactory caliber to permit us to use this as the entry vessel. In any event, 10,000 units of heparin were given. On the right side, a pursestring suture was placed and through it, the Amplatz needle, guidewire and 6-[place]er sheaths were placed and then the J-wire was advanced with the Kumpe catheter over it and then this was exchanged for the Deanne wire. On the left side, the superficial femoral artery was controlled, an arteriotomy was made after the artery had been entered with the initial Amplatz needle [facility] [address] [place] [address] OPERATIVE REPORT Name: RIN MACDONALD Room #: 245-P DIS IN M.R.#: [id number] Admission: 10/27/18 ������������������ Attend Phys: Jefferson Mcintyre MD Discharge: 10/29/18 ������������������ Date of : 47 Report #: [id number] guidewire and catheter and then ultimately an 18-[place] sheath was placed over the Deanne wire. Our initial attempt was to stack cuffs from the previous AneuRx graft up to the renal arteries. A 32 mm cuff and then the 36 mm cuff were placed sequentially from just above the flow divider of the previous AneuRx graft. The proximal extent was dictated by the right renal artery. The right renal artery was identified using visceral catheter and then a guidewire and guiding catheter were placed into this vessel through the right side and then the proximal cuff was ejected. The proximal cuff appeared to ride slightly high and so this right renal artery was accessed using another visceral catheter from above the cuff and then sequentially placing guidewire, guiding catheter and ultimately balloon dilatation followed by a 6-mm stent, which was over-distended to 7 mm to maintain good patency of the right renal artery. With all of the stents in place, an arteriogram was done. Unfortunately, this demonstrated a leak at the distal level which suggested either degeneration of the old AneuRx graft or inadequate coverage. We felt that we had only 1 mm of extra coverage to obtain and that even if we achieve this, there would still be the risk of degeneration of the material. As such, we elected to use an iliac branch device and build both up and down from this to completely re-align the old AneuRx graft. This was accomplished by placing a 23 mm iliac branch device through the 18-[place] sheath on the left side. The device was opened just above the flow divider of the old AneuRx graft. Because the 23 was not going to have good opposition, we were able to pull the graft down a bit using the noncompliant balloon by distending that within the graft above the flow divider and pulling distally. We pulled this device down as far as we could, and then through the right side, the contralateral gate was cannulated and then a long contralateral component was placed in the contralateral gate down into the right iliac artery. A retrograde sheath shot was done to illustrate that there was no right hypogastric to be concerned about. With this device in place, the Compliant balloon was used to fully deploy it in the contralateral gate. The balloon was also used to help us place the proximal device using the markers on the graft and the marker from the right renal stent. We placed a 28 mm cuff deployed against the balloon, and this was placed to provide good seal from the iliac branch device up to the proximal end of the old stent graft, although the initial stent graft was 36, the artery itself on the arteriogram measured approximately 28 and measured somewhat less by virtue of the measurements that we could do in the laborer concrete plant, and we thought a 28 graft would be optimal in terms of both diameter and length for the situation. This graft was deployed and then the balloon was used to fully expand. On the [facility] [address] [place] [address] OPERATIVE REPORT Name: RIN MACDONALD Room #: 245-P [facility] IN M.R.#: [id number] Admission: 10/27/18 ������������������ Attend Phys: Jefferson Mcintyre MD Discharge: 10/29/18 ������������������ Date of : 47 Report #: [id number] left side, the iliac extension was opened down into the common iliac, and this graft was fully deployed using the balloon to fully expand it. With all of the devices placed and the grafts fully expanded with the balloons, then a final arteriogram was done that showed good patency of the renal artery and no evidence of type 1 leak. With all of this accomplished, the sheaths and guidewires were removed on the right side. The pursestrings were sufficient to close the aperture in the vessel, and on the left side, an interrupted Prolene was used to close a highly calcified superficial femoral artery. At the end of the case, both feet were warm and pink. Protamine was given to reverse the heparin. Hemostasis was ascertained, and the wound was closed in layers. The patient was taken to the recovery area in good condition having tolerated the procedure well. All counts reported as correct. ��������������������������������������������� <ELECTRONICALLY SIGNED> ���������������������������������������� By: Jefferson Mcintyre MD ��������������������������������������������� 11/02/18 0901 0840 0926 Jefferson Mcintyre MD /corey
== END 2018-10-29 16:32 | disposition home or self-care (01) | DRG 268 ==
LOC: ICU 05:30 → TBA 05:30 → PRE 05:58 → ICU 16:24
PROVIDERS: Physician Assistant; ADMIT Surgery Vascular Surgery
DX: I71.4 Abdominal aortic aneurysm, without rupture (principal); G92 Toxic encephalopathy; E43 Unspecified severe protein-calorie malnutrition; I25.10 Atherosclerotic heart disease of native coronary artery without angina pectoris; I10 Essential (primary) hypertension; E78.5 Hyperlipidemia, unspecified; J44.9 Chronic obstructive pulmonary disease, unspecified; I73.9 Peripheral vascular disease, unspecified; I48.2 Chronic atrial fibrillation; G25.81 Restless legs syndrome; R41.0 Disorientation, unspecified; Z82.49 Family history of ischemic heart disease and other diseases of the circulatory system; Z86.73 Personal history of transient ischemic attack (TIA), and cerebral infarction without residual deficits; Z95.820 Peripheral vascular angioplasty status with implants and grafts; I25.2 Old myocardial infarction; Z79.82 Long term (current) use of aspirin; Z79.899 Other long term (current) drug therapy; Z90.49 Acquired absence of other specified parts of digestive tract; Z95.1 Presence of aortocoronary bypass graft; Z87.11 Personal history of peptic ulcer disease
CPT/HCPCS: 10078; 47375; 48888; 50010; 50101; 50386; 50455; 51078; 51751; 52287; 54118; 56524; 56526; 56527; 56529; 56531; 56668; 56760; 57093; 62110; 62900; 65020; 65040; 70005

== ENCOUNTER → 2018-11-28 | Outpatient (CLI) | payer OTHER ==
[2018-11-28 09:26] LABS: CREATININE 1.3 mg/dL (0.7-1.3)
--- NOTE | 2018-11-28 11:38 | NUR ---
PT IN CV FOR IV FLUIDS FOR CT SCAN. 18 G STARTED IN RIGHT AC. IV PATENT. NO COMPLICATIONS. 1 L NS INFUSED PRIOR TO CT PROCEDURE. PT RECEIVED 1 L NS POST PROCEDURE WELL. IV DISCONTINUED AFTER INFUSION. CATHETER INTACT. BLEEDING STOPPED. HEMOSTASIS ACHIENVED. PT AMBULATORY WITH STEADY GAIT.
== END ==
LOC: CAT 11-25 14:09
PROVIDERS: Nuclear Medicine Nuclear Cardiology
DX: Z01.812 Encounter for preprocedural laboratory examination (principal); I71.4 Abdominal aortic aneurysm, without rupture; I72.4 Aneurysm of artery of lower extremity; K55.1 Chronic vascular disorders of intestine; M47.819 Spondylosis without myelopathy or radiculopathy, site unspecified; N26.1 Atrophy of kidney (terminal); N28.1 Cyst of kidney, acquired; N28.0 Ischemia and infarction of kidney; I70.8 Atherosclerosis of other arteries; Z95.828 Presence of other vascular implants and grafts; Z88.8 Allergy status to other drugs, medicaments and biological substances

== ENCOUNTER → 2019-05-26 | Outpatient (CLI) | payer OTHER | LOC: SJCVC 08:30 | DX: E78.00 Pure hypercholesterolemia, unspecified (principal) ==

== ENCOUNTER → 2019-09-11 | Outpatient (CLI) | payer OTHER | LOC: ULTRA 16:01 | DX: N43.3 Hydrocele, unspecified (principal); N50.89 Other specified disorders of the male genital organs ==

== ENCOUNTER → 2019-12-15 | Outpatient (CLI) | payer OTHER | LOC: SJCVCIMAG 08:35 | PROVIDERS: ATTEND Internal Medicine Cardiovascular Disease | DX: I70.203 Unspecified atherosclerosis of native arteries of extremities, bilateral legs (principal); R94.31 Abnormal electrocardiogram [ECG] [EKG]; R00.1 Bradycardia, unspecified; I25.10 Atherosclerotic heart disease of native coronary artery without angina pectoris; I48.0 Paroxysmal atrial fibrillation; I10 Essential (primary) hypertension; I70.1 Atherosclerosis of renal artery; E78.00 Pure hypercholesterolemia, unspecified; J44.9 Chronic obstructive pulmonary disease, unspecified; F17.210 Nicotine dependence, cigarettes, uncomplicated; Z95.1 Presence of aortocoronary bypass graft; Z95.828 Presence of other vascular implants and grafts ==

== ENCOUNTER → 2019-12-21 | Outpatient (CLI) | payer OTHER ==
[2019-12-21 11:22] LABS: CALCIUM 8.5 mg/dL (8.5-10.1); CREATININE 1.3 mg/dL (0.7-1.3); POTASSIUM 4.4 mmol/L (3.5-5.1)
== END ==
LOC: CAT 09:11
PROVIDERS: ATTEND Internal Medicine Cardiovascular Disease
DX: I71.4 Abdominal aortic aneurysm, without rupture (principal); I70.1 Atherosclerosis of renal artery; I72.4 Aneurysm of artery of lower extremity

== ENCOUNTER → 2020-01-26 | Outpatient (CLI) | payer OTHER | LOC: SJCVCIMAG 07:25 | PROVIDERS: ATTEND Internal Medicine Cardiovascular Disease | DX: I48.0 Paroxysmal atrial fibrillation (principal); I25.10 Atherosclerotic heart disease of native coronary artery without angina pectoris; E78.5 Hyperlipidemia, unspecified; J44.9 Chronic obstructive pulmonary disease, unspecified; F17.200 Nicotine dependence, unspecified, uncomplicated; Z79.899 Other long term (current) drug therapy ==

== ENCOUNTER 2020-02-05 06:08 | Inpatient (IN) | payer OTHER ==
[~2020-02-05] VITALS: Ht 182.9 cm; Wt 78.9 kg
[2020-02-05 06:09] VITALS: BP 195/72
[2020-02-05] MEDS ORDERED: NAMENDA 10 MG T10 MG PO ×2 (07:00→16:13)
[2020-02-05] MEDS ORDERED: PLAVIX 75 MG TA75 MG PO (07:01)
[2020-02-05] MEDS ORDERED: ARICEPT10 M1 PO ×2 (07:01→16:13)
[2020-02-05 07:07] LABS: HEMATOCRIT 30.7 % (42.0-52.0); HEMOGLOBIN 10.7 gm/dL (14.0-18.0); MCH 36.3 pg (26.0-34.0); MCV 103.9 fL (80.0-100.0); RBC 2.95 mil/uL (4.50-6.00); RDW 12.7 % (10.5-14.5); WBC 7.9 thou/uL (4.0-11.0)
[2020-02-05 07:09] LABS: APTT 31.1 Seconds (24.5-32.8); CALCIUM 8.5 mg/dL (8.5-10.1); CREATININE 1.1 mg/dL (0.7-1.3); POTASSIUM 4.3 mmol/L (3.5-5.1); PROTIME 10.3 Seconds (9.3-11.4)
--- NOTE | 2020-02-05 07:11 | NUR ---
CONTACTED PT'S RE: MEDICATIONS AND RECENT TESTS PT THINKS HE HAD. SHE REPORTS HE HAD A NEGATIVE STRESS TEST WITH DR. DURAN THIS MONTH BUT HAS NOT HAD HIS AAA STENT EVALUATED IN QUITE SOME TIME. REPORTED TO ERP.
[2020-02-05 07:18] LABS: D-DIMER 3.74 ug/mLFEU (0.19-0.50)
--- NOTE | 2020-02-05 09:33 | NUR ---
DR DURAN CALLED WITH ORDER TO PLACE PT ON HEPARIN PROTOCOL, NOTIFIED ERP.
[2020-02-05 11:24] VITALS: BP 170/69
--- NOTE | 2020-02-05 11:27 | NUR ---
1ST ATTEMPT TO GIVE INPATIENT REPORT, RECEIVING NURSE IN THE MIDDLE OF DISCHARGE AND WILL RETURN CALL REID.
--- NOTE | 2020-02-05 12:18 | NUR ---
DR OMER MADE AWARE OF PT'S BP 234/78 DESPITE DOSES OF IV LABETALOL. NEW ORDER WILL BE ADMINISTERED. PT DENIES ANY PAIN AT THIS TIME.
--- NOTE | 2020-02-05 12:20 | NUR ---
SPOUSE NAYLA MACDONALD CALLED, PER PT'S APPROVAL, UPDATE ON CURRENT CARE PLAN GIVEN. PT MADE AWARE.
[2020-02-05 13:22] VITALS: BP 180/121
[2020-02-05 14:37] VITALS: BP 152/42
[2020-02-05 17:15] VITALS: BP 156/75
--- NOTE | 2020-02-05 17:32 | NUR ---
NEW ADMIT FROM ED FOR HTN, RIGHT LEG PAIN. ALERT TO SELF, HISTORY OF DEMINTIA, IMPULSIVE, ABLE TO REDIRECT. SA ON TELE. CRITICAL PTT HEPARIN STOPPED/CANCELED PER DR OMER. UP WITH STAND BY TO TOILET. FROM HOME WITH . ADMISSION COMPLETED. CONSENTS SIGNED. ORIENTED TO ROOM. UNABLE TO DEMONSTRATE CALL LIGHT. CLOSE TO NURSES STATION FOR OVERSIGHT. PER , PT IS UP AND DOWN ALL NIGHT AT HOME.BED AND CHAIR ALARM ON. PERSONAL ITEMS IN REACH.
--- NOTE | 2020-02-05 19:24 | HC ---
[facility] [place] [address] CONSULTATION Name: RIN MACDONALD Room #: 216-P ADM IN M.R.#: [id number] Admission: 02/05/20 Attend Phys: Johann Malagon MD Discharge: Date of : 47 Report #: [id number] THIS REPORT FOR: cc: Fred Mackey,Gopal Hughes MD [facility] ~ CC: Johann Mackey DATE OF SERVICE: 02/05/2020 HISTORY OF PRESENT ILLNESS: The patient is a 74-year-old male who is well known to us. He presents to the Emergency Room with some right lower extremity pain. He has had significant vascular disease and recently evaluated by Dr. Gonzales. The CT angiogram reveals actually no new findings and his right lower extremity pain has improved, felt to be possibly musculoskeletal. The aortoiliac endograft is in place. The aneurysm sac is small and residual, occluded right common femoral artery distally and distal common femoral aneurysm with thrombus reconstitutes at the popliteal and then arteries below the knee are not adequately evaluated. Although this looks to be completely unchanged from the prior exam. 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 He has not had any chest pain or anginal-type complaints. He had a bypass surgery in 2008. Underlying hypertension, hypercholesterolemia, mild carotid disease and the prior aortic stent graft. His ejection fraction is near normal with EF of 50-55%. He was catheterized in 2018 with an occluded circumflex and LAD. MENENDEZ to the LAD was intact, diffusely diseased large vein graft with mild disease to the OM and a large patent graft to the PDA, which retrograde fills the distal RCA and the posterior lateral branch. He has been compliant with his medications. He has had a long history of tobacco use. He is on Aricept, Vascepa, Namenda, multivitamin, Bystolic 5, olmesartan 40, rosuvastatin 10, Hytrin, baby aspirin and Plavix. PAST MEDICAL HISTORY: Positive for the coronary artery disease with bypass, mild ischemic cardiomyopathy, hypertension, hypercholesterolemia, aortic aneurysm repair, iliac aneurysm, significant below, common femoral and SFA disease stable, hernia repair, partial gastrectomy, renal stent, shoulder surgery, tonsillectomy. He has had prior iliac and popliteal stents placed in 2012. SOCIAL HISTORY: He is relatively independent. He smokes daily. He is retired. No alcohol use. No illicit drug use. He is still independent, 4-5 cups of coffee a day. ALLERGIES: LEONIDES AND RAMIPRIL. [address] [address] CONSULTATION Name: RIN MACDONALD MARY JANE Room #: 216-P [facility] IN M.R.#: [id number] Admission: 02/05/20 Attend Phys: Johann Malagon MD Discharge: Date of : 47 Report #: [id number] FAMILY HISTORY: Father had premature coronary artery disease with an infarct in his 60s. LABORATORY DATA: Sodium 128, potassium 4.3, creatinine 1.1, glucose 135. GFR was 66. H and H was 10.7 and 30.7. He does have some history of chronic anemia and in fact his discharge hemoglobin was 9.8 last October of 2018. PHYSICAL EXAMINATION: GENERAL: He is not in any significant distress. He is pleasant. VITAL SIGNS: His blood pressure has been labile 160, it is now 200, pulse is 60s. HEENT: Eyes reveal xanthelasmas. Pharynx is clear. NECK: Shows preserved upstrokes without JVD or bruits. LUNGS: Prolonged expiratory phase, diminished in the bases. CARDIOVASCULAR: Regular rate and rhythm, S1, S2 distant. ABDOMEN: Soft. No HSM or abdominal bruit. EXTREMITIES: I cannot palpate distal pulses, femoral or distally. There is some capillary refill. Legs are warm to the ankles bilaterally. MUSCULOSKELETAL: Generalized arthritic changes. I did not ambulate him. SKIN: Warm and dry. There are venous stasis changes. ASSESSMENT: 1. Labile hypertension. 2. Right lower extremity pain, suspect nonvascular although significant peripheral vascular disease as described above, but no interval change. 3. Coronary artery disease with prior coronary artery bypass grafting. 4. Mild ischemic cardiomyopathy. 5. Hypertension. 6. Hypercholesterolemia. 7. Chronic obstructive pulmonary disease with continued tobacco use. 8. Degenerative joint disease. RECOMMENDATIONS AND PLAN: Currently, labetalol. We will continue with the olmesartan. We will add 10 mg of amlodipine. Continue Bystolic. We will monitor on telemetry. We will watch for that mild hyponatremia. Currently on heparin drip, probably could discontinue this. There are no interval changes stated on the CTA of the lower extremity as reviewed by Dr. Gonzales. We will continue to follow the patient with you. Hopefully, this will be a relatively short hospitalization. <ELECTRONICALLY SIGNED> By: Gopal Aguirre MD, FACC 02/05/20 1924 1214 1416 Gopal Aguirre MD, FACC /nt
[2020-02-06] VITALS: BP 145/34
[2020-02-06 04:59] VITALS: BP 155/55
--- NOTE | 2020-02-06 06:36 | NUR ---
ASSUMED CARE OF PATIENT AT 1900. BP ELEVATED. TAX MANAGER CPA NOTIFIED. FLUIDS DC'D, HYDRALAZINE GIVEN WITH GOOD RESULT ON RECHECK. PATIENT CONFUSED, DISORIENTED, HALLUCINATING. UNABLE TO REORIENT. GIVEN PRN HALDOL, NOT EFFECTIVE. TAX MANAGER CPA NOTIFIED, ONE TIME ORDER FOR ATIVAN RECIEVED. PATIENT IS STILL IMPULSIVE, UNABLE TO FOLLOW DIRECTION AND CONFUSED. NOT PROGRESSING TOWARDS POC GOALS.
--- NOTE | 2020-02-06 07:21 | NUR ---
REC REPORT ON PT'S FREQ FAST GETTING OOB, WILL TRY TO CHART IN ROOM MUCH POSSIBLE AND WALK LHIM. REPORTS OF PREVIOUS CANCELED STENT PLACEMENT SO RE-ORDERED MEAL, LAB CALLED AND ASKED IF LAST NIGHTS APTT NEEDED TO BE CANCELLED, SINCE NUMBERS ASKEW ASKED FOR HIM TO BE DRAWN SOMETIME THIS A.M. OR TO USE CURRENT BLOOD. REPORTS OF SEVERE DEMENTIA AND PT TALKING ABOUT A HORSE IN THE ROOM. SEE SEPARATE INTERVENTIONS, WILL MONITOR CLOSELY.
[2020-02-06 08:10] VITALS: BP 152/56
[2020-02-06 08:44] LABS: HEMOGLOBIN 11.4 gm/dL (14.0-18.0); MCH 36.1 pg (26.0-34.0); MCHC 34.5 g/dL (28.0-37.0); MCV 104.5 fL (80.0-100.0); RBC 3.16 mil/uL (4.50-6.00); WBC 8.8 thou/uL (4.0-11.0)
[2020-02-06 08:49] LABS: CALCIUM 8.5 mg/dL (8.5-10.1); CREATININE 0.9 mg/dL (0.7-1.3); MAGNESIUM 1.9 mg/dL (1.8-2.4); POTASSIUM 3.8 mmol/L (3.5-5.1)
[2020-02-06 11:30] VITALS: BP 134/43
[2020-02-06] MEDS ORDERED: NORVASC10 MG PO (12:29)
[2020-02-06 13:22] VITALS: BP 134/43
== END 2020-02-06 18:07 | disposition home or self-care (01) | DRG 305 ==
LOC: ER 06:08 → EROBS 09:53 → 2N 13:37
PROVIDERS: Emergency Medicine; ADMIT Internal Medicine; ATTEND Internal Medicine
DX: I16.1 Hypertensive emergency (principal); E87.1 Hypo-osmolality and hyponatremia; I73.9 Peripheral vascular disease, unspecified; E78.5 Hyperlipidemia, unspecified; N18.9 Chronic kidney disease, unspecified; I48.91 Unspecified atrial fibrillation; G25.81 Restless legs syndrome; F03.90 Unspecified dementia, unspecified severity, without behavioral disturbance, psychotic disturbance, mood disturbance, and anxiety; I25.10 Atherosclerotic heart disease of native coronary artery without angina pectoris; E78.00 Pure hypercholesterolemia, unspecified; M19.90 Unspecified osteoarthritis, unspecified site; I25.5 Ischemic cardiomyopathy; J44.9 Chronic obstructive pulmonary disease, unspecified; F17.210 Nicotine dependence, cigarettes, uncomplicated; I16.0 Hypertensive urgency; D64.9 Anemia, unspecified; I71.4 Abdominal aortic aneurysm, without rupture; I65.29 Occlusion and stenosis of unspecified carotid artery; I48.0 Paroxysmal atrial fibrillation; I12.9 Hypertensive chronic kidney disease with stage 1 through stage 4 chronic kidney disease, or unspecified chronic kidney disease; I70.1 Atherosclerosis of renal artery; Z90.49 Acquired absence of other specified parts of digestive tract; Z86.73 Personal history of transient ischemic attack (TIA), and cerebral infarction without residual deficits; Z87.11 Personal history of peptic ulcer disease; Z95.1 Presence of aortocoronary bypass graft; Z90.3 Acquired absence of stomach [part of]; Z88.8 Allergy status to other drugs, medicaments and biological substances; Z82.49 Family history of ischemic heart disease and other diseases of the circulatory system; Z71.6 Tobacco abuse counseling
CPT/HCPCS: 10081

== ENCOUNTER → 2020-02-18 | Outpatient (CLI) | payer OTHER ==
[~2020-02-18] MED LIST changes: +ARICEPT10 M1 PO; +NAMENDA 10 MG T10 MG PO; +NORVASC10 MG PO
== END ==
LOC: SJCVCIMAG 10:52
PROVIDERS: ATTEND Nuclear Medicine Nuclear Cardiology
DX: I70.203 Unspecified atherosclerosis of native arteries of extremities, bilateral legs (principal); I71.4 Abdominal aortic aneurysm, without rupture; I74.3 Embolism and thrombosis of arteries of the lower extremities; I77.9 Disorder of arteries and arterioles, unspecified; E78.00 Pure hypercholesterolemia, unspecified; I25.10 Atherosclerotic heart disease of native coronary artery without angina pectoris; I48.0 Paroxysmal atrial fibrillation; I10 Essential (primary) hypertension; I70.1 Atherosclerosis of renal artery; E11.9 Type 2 diabetes mellitus without complications; F17.210 Nicotine dependence, cigarettes, uncomplicated; Z95.1 Presence of aortocoronary bypass graft; Z95.828 Presence of other vascular implants and grafts; Z79.899 Other long term (current) drug therapy

== ENCOUNTER → 2020-06-17 | Outpatient (CLI) | payer OTHER ==
[~2020-06-17] MED LIST changes: +BYSTOLIC 5 MG5 MG PO; +MEMANTINE HCL10 MG PO; +ROSUVASTATIN CA20 MG PO; +TERAZOSIN HCL5 MG PO
== END ==
LOC: LAB 11:10
PROVIDERS: ATTEND Surgery
DX: Z01.812 Encounter for preprocedural laboratory examination (principal); Z20.822 Contact with and (suspected) exposure to COVID-19

== ENCOUNTER 2020-06-22 07:28 | Day surgery (SDC) | payer OTHER ==
[~2020-06-22] VITALS: Ht 182.9 cm; Wt 79.4 kg
[2020-06-22 08:19] VITALS: BP 134/66
[2020-06-22] MEDS ORDERED: HYDROCODON-ACE1 EAC7 PO (10:29)
[2020-06-22] MEDS ORDERED: MIRALAX17 GM PO (10:29)
[2020-06-22] MEDS ORDERED: COLACE 100 MG100 MG PO (10:29)
[2020-06-22 10:53] VITALS: BP 134/66
[2020-06-22 10:55] VITALS: BP 134/66
== END 2020-06-22 11:00 | disposition home or self-care (01) ==
LOC: OR 07:28 → TBA 07:31 → OR 11:00 → EDSTATUS 11:45 → OR 11:53
PROVIDERS: ATTEND Surgery
DX: K42.9 Umbilical hernia without obstruction or gangrene (principal); I10 Essential (primary) hypertension; I25.2 Old myocardial infarction; I48.91 Unspecified atrial fibrillation; J43.9 Emphysema, unspecified; G30.9 Alzheimer's disease, unspecified; F02.80 Dementia in other diseases classified elsewhere, unspecified severity, without behavioral disturbance, psychotic disturbance, mood disturbance, and anxiety; F17.210 Nicotine dependence, cigarettes, uncomplicated; E78.5 Hyperlipidemia, unspecified; I73.9 Peripheral vascular disease, unspecified; Z98.890 Other specified postprocedural states; Z79.899 Other long term (current) drug therapy; Z79.01 Long term (current) use of anticoagulants; Z86.73 Personal history of transient ischemic attack (TIA), and cerebral infarction without residual deficits; Z90.49 Acquired absence of other specified parts of digestive tract; Z95.1 Presence of aortocoronary bypass graft; Z88.8 Allergy status to other drugs, medicaments and biological substances
CPT/HCPCS: 50010; 50101; 50119; 50386; 50417; 54118; 56525; 56526; 62110; 62900; 70005

== ENCOUNTER 2020-07-26 21:29 | Inpatient (IN) | payer OTHER ==
[~2020-07-26] VITALS: Ht 182.9 cm; Wt 76.5 kg
[~2020-07-26 21:29] MED LIST changes: +COLACE 100 MG100 MG PO; +HYDROCODON-ACE1 EAC7 PO; +MIRALAX17 GM PO
[2020-07-26 21:30] VITALS: BP 124/52
[2020-07-26 22:32] LABS: ABSOLUTE NEUTROPHILS 3.3 thou/uL (1.4-8.2); BASOPHILS 0.2 % (0.0-2.0); EOSINOPHILS 1.8 % (0.0-3.0); HEMATOCRIT 30.6 % (42.0-52.0); HEMOGLOBIN 10.4 gm/dL (14.0-18.0); LYMPHOCYTES 16.8 % (24.0-44.0); MCH 35.3 pg (26.0-34.0); MCHC 34.1 g/dL (28.0-37.0); MCV 103.4 fL (80.0-100.0); MONOCYTES 10.6 % (1.0-8.0); PLATELET COUNT 169 thou/uL (150-400); POLYS 70.6 % (36.0-66.0); RBC 2.96 mil/uL (4.50-6.00); RDW 12.3 % (10.5-14.5); WBC 4.6 thou/uL (4.0-11.0)
[2020-07-26 22:39] LABS: CALCIUM 8.3 mg/dL (8.5-10.1); CREATININE 1.4 mg/dL (0.7-1.3); POTASSIUM 3.3 mmol/L (3.5-5.1)
[2020-07-26 22:50] LABS: ALBUMIN 2.8 g/dL (3.4-5.0); DIRECT BILIRUBIN 0.1 mg/dL (<0.1-0.2); MAGNESIUM 1.9 mg/dL (1.8-2.4); PHOSPHORUS 3.8 mg/dL (2.5-4.9); TOTAL BILIRUBIN 0.4 mg/dL (0.2-1.0); TOTAL PROTEIN 5.9 g/dL (6.4-8.2); TROPONIN-I 0.23 ng/mL (<0.06)
[2020-07-26 23:37] LABS: URINE BILIRUBIN NEGATIVE (Negative); URINE BLOOD NEGATIVE (Negative); URINE CLARITY CLEAR; URINE COLOR YELLOW; URINE GLUCOSE-RANDOM* NEGATIVE (Negative); URINE KETONES NEGATIVE (Negative); URINE LEUKOCYTES-REFLEX NEGATIVE (Negative); URINE NITRITE-REFLEX NEGATIVE (Negative); URINE PROTEIN (DIPSTICK) NEGATIVE (Negative); URINE SPECIFIC GRAVITY <= 1.005 (1.005-1.035); URINE UROBILINOGEN 0.2 E.U./dl (0.2-1.0)
[2020-07-27] VITALS (8 sets, daily range): BP systolic 120–166; BP diastolic 41–73
--- NOTE | 2020-07-27 07:15 | EKG ---
[address] [address] ELECTROCARDIOGRAM REPORT Name: RIN MACDONALD Room #: 200-I ADM IN M.R.#: [id number] Admission: 07/27/20 Attend Phys: Lian Hernández MD Discharge: Date of : 47 Report #: [id number] [facility] ED Test Date: 2020-07-26 Test Time: 21:42:04 Pat Name: RIN AMCDONALD Department: Room: 200 Gender: M Interactive Marketing Strategist: KENDRICK : 1945 Requested By: Bird Calhoun Order Number: [id number] MD: Cristobal Samayoa Measurements Intervals [place] Rate: 56 P: 38 VA: 185 QRS: -47 QRSD: 128 T: -38 QT: 455 QTc: 440 Interpretive Statements Sinus rhythm Compared to ECG 10/21/2018 10:51:14 Sinus bradycardia no longer present Intraventricular conduction delay no longer present Electronically Signed On 07-27-2020 7:15:02 CHEESE BLENDER by Cristobal Samayoa [email or web address] <ELECTRONICALLY SIGNED> By: Cristobal Samayoa MD, [facility] 07/27/20 0715 2142 41 Cristobal Samayoa MD, FACC /EPI
--- NOTE | 2020-07-27 07:27 | NUR ---
ASSUMED PT CARE AT 0230 FROM ER. PT A&0X4. FORGETFULL. PT HAD A GOOD NOC. RESTED WELL. NO COMPLAINTS OVER NOC. WILL CONTINUE TO MONITOR
--- NOTE | 2020-07-27 13:35 | 2DMMODE ---
[facility] [place] [address] 2 D/M-MODE ECHOCARDIOGRAM Name: RIN MACDONALD Room #: 200-I ADM IN M.R.#: [id number] Admission: 07/27/20 Attend Phys: Lian Hernández MD Discharge: Date of : 47 Report #: [id number] THIS REPORT FOR: cc: Fred Mackey,Cristobal Lopez MD [facility] ~ APPROVED REPORT Study performed: 07/27/2020 12:49:27 EXAM: Comprehensive 2D, Doppler, and color-flow Echocardiogram Patient Location: Echo lab Room #: 200 Status: routine BSA: 1.98 HR: 66 bpm BP: 142/63 mmHg Rhythm: Sinus arrhythmia. Other Information Study Quality: Good Indications Dizziness, elevated troponin. Hx: CABG, Afib, PVD, CVA, HTN, HLP, COPD. 2D Dimensions RVDd: 25.84 mm IVSd: 10.31 (7-11mm) LVOT Diam: 22.11 (18-24mm) LVDd: 59.00 mm PWd: 12.31 (7-11mm) LVDs: 48.48 (25-40mm) Left Atrium: 47.27 (27-40mm) Aortic Root: 32.04 mm Volumes Left Atrial Volume (Systole) Single Plane 4CH: 71.59 mL Single Plane 2CH: 73.67 mL LA ESV Index: 40.00 mL/m2 Aortic Valve AoV Peak David.: 1.48 m/s AO Peak Gr.: 8.76 mmHg LVOT Max P.21 mmHg LVOT Max V: 1.14 m/s [facility] [address] [place] [address] 2 D/M-MODE ECHOCARDIOGRAM Name: RIN MACDONALD MARY JANE Room #: 200-I ADM IN [facility].#: [id number] Admission: 07/27/20 Attend Phys: Michelle Cruz Discharge: Date of : 47 Report #: [id number] COREY Vmax: 2.96 cm2 Mitral Valve E/A Ratio: 1.1 MV Decel. Time: 218.35 ms MV E Max David.: 0.99 m/s MV A David.: 0.88 m/s MV PHT: 63.32 ms IVRT: 124.57 ms Pulmonary Valve PV Peak David.: 0.86 m/s PV Peak Gr.: 2.96 mmHg Pulmonary Vein P Vein S: 0.65 m/s P Vein A: 0.25 m/s P Vein D: 0.42 m/s P Vein A Dur.: 166.1 msec P Vein S/D Ratio: 1.55 Tricuspid Valve TR Peak David.: 3.12 m/s RAP Estimate: 10.00 mmHg TR Peak Gr.: 39.00 mmHg PA Pressure: 39.00 mmHg Left Ventricle Left ventricle is mildly dilated. There is normal left ventricular wall thickness. Left ventricular systolic function is mildly decreased. LVEF is 45-50%. Moderate diastolic dysfunction is present. Right Ventricle The right ventricle is normal size. The right ventricular systolic function is normal. Atria Left atrium is mild to moderately dilated. Right atrium is mildly dilated. Aortic Valve The aortic valve is normal in structure. Leaflets are moderately sclerotic. No aortic regurgitation is present. There is no aortic valvular stenosis. Mitral Valve The mitral valve is normal in structure. Moderate mitral annular calcification. Mild mitral regurgitation. No evidence of mitral valve stenosis. [facility] [address] [place] [address] 2 D/M-MODE ECHOCARDIOGRAM Name: RIN MACDONALD Room #: 200-I ADM IN ..#: [id number] Admission: 07/27/20 Attend Phys: Michelle Cruz Discharge: Date of : 47 Report #: [id number] Tricuspid Valve The tricuspid valve is normal in structure. Mild to moderate tricuspid regurgitation. Estimated PAP is 40mmHg. Pulmonic Valve The pulmonary valve is normal in structure. Mild pulmonic regurgitation. Great Vessels The aortic root is normal in size. IVC is dilated and collapses >50% with inspiration. Pericardium There is no pericardial effusion. <Conclusion> Left ventricle mildly dilated with normal wall thickness Global hypokinesis ejection fraction 45% Grade 1 diastolic dysfunction Normal right ventrlicular size/function Normal atrial size Color-flow Doppler study was performed of the aortic/mitral/tricuspid/pulmonary valve Normal aortic valve structure with mild sclerosis, no stenosis Moderate mitral annular calcification Mild central mitral valve insufficiency Mild tricuspid valve insufficiency Pulmonary systolic pressure estimated 40 mmHg Normal aortic root size Mildly dilated IVC, responsive to respiration No pericardial effusion <ELECTRONICALLY SIGNED> By: Cristobal Samayoa MD, FACC 07/27/20 1335 133 34 Cristobal Samayoa MD, FACC /INF
--- NOTE | 2020-07-27 16:25 | NUR ---
Possible dc home later today. Cm assessment completed with the pt's Patricia via phone. Brick Burner Head attempted to visit with the pt at bedside and he is oriented to person only, up ad oly in the room and wanting to leave to look for his hotel room. Attempted to reorient pt. Pt now watching tv in his room. Nursing updated. Spouse updated. Cardiology workup completed. Pt is indep with gait and occasionally uses a rwalker at home. notes he is confused and often sleeps during the day and up at night. He does not try to leave the house. He is on two medications for alzh per his pcp Dr. Mackey. She notes that they do not need HH or dme at this time. She would like to find a director digital marketing as she is limited endurance due to her lung disease and is on oxygen. Pt has complex cardiac history. Spouse notes they manage but have limited support as they did not have any children. She has a good friend who helps with transport and can come pick him up today if dc'd. They have a split level home with 6 steps in and 6 up to the bedroom. Pt is a smoker. Support provided. HH referral declined. The attending and care team updated.
[2020-07-27 20:06] LABS: THYROID PEROXIDASE AB 8 IU/mL (0-34)
[2020-07-29 07:09] LABS: THYROID STIMULATING IG < 0.10 IU/L (0.00-0.55)
== END 2020-07-27 17:45 | disposition home or self-care (01) | DRG 683 ==
LOC: ER 21:29 → EROBS 07-27 01:32 → 2N 07-27 01:32
PROVIDERS: Emergency Medicine; ADMIT Hospitalist; ATTEND Hospitalist
DX: N17.9 Acute kidney failure, unspecified (principal); I24.8 Other forms of acute ischemic heart disease; I42.9 Cardiomyopathy, unspecified; I25.10 Atherosclerotic heart disease of native coronary artery without angina pectoris; E86.0 Dehydration; E78.5 Hyperlipidemia, unspecified; I10 Essential (primary) hypertension; G25.81 Restless legs syndrome; I73.9 Peripheral vascular disease, unspecified; J44.9 Chronic obstructive pulmonary disease, unspecified; F17.210 Nicotine dependence, cigarettes, uncomplicated; K21.9 Gastro-esophageal reflux disease without esophagitis; F03.90 Unspecified dementia, unspecified severity, without behavioral disturbance, psychotic disturbance, mood disturbance, and anxiety; I48.0 Paroxysmal atrial fibrillation; I65.22 Occlusion and stenosis of left carotid artery; E05.90 Thyrotoxicosis, unspecified without thyrotoxic crisis or storm; E87.6 Hypokalemia; Z79.01 Long term (current) use of anticoagulants; Z82.3 Family history of stroke; Z90.49 Acquired absence of other specified parts of digestive tract; Z95.1 Presence of aortocoronary bypass graft; Z87.11 Personal history of peptic ulcer disease; Z95.820 Peripheral vascular angioplasty status with implants and grafts; Z88.8 Allergy status to other drugs, medicaments and biological substances; Z79.82 Long term (current) use of aspirin; Z79.899 Other long term (current) drug therapy; Z82.49 Family history of ischemic heart disease and other diseases of the circulatory system; Z71.6 Tobacco abuse counseling
CPT/HCPCS: 10081

== ENCOUNTER → 2020-08-04 | Outpatient (CLI) | payer OTHER | LOC: SJCVCIMAG 07-26 08:36 | PROVIDERS: ATTEND Nuclear Medicine Nuclear Cardiology | DX: R94.31 Abnormal electrocardiogram [ECG] [EKG] (principal); I45.4 Nonspecific intraventricular block; R00.1 Bradycardia, unspecified; I65.23 Occlusion and stenosis of bilateral carotid arteries; I25.10 Atherosclerotic heart disease of native coronary artery without angina pectoris; I71.4 Abdominal aortic aneurysm, without rupture; J44.9 Chronic obstructive pulmonary disease, unspecified; I48.0 Paroxysmal atrial fibrillation; I77.9 Disorder of arteries and arterioles, unspecified; I63.9 Cerebral infarction, unspecified; I10 Essential (primary) hypertension; E05.90 Thyrotoxicosis, unspecified without thyrotoxic crisis or storm; I70.1 Atherosclerosis of renal artery; I73.9 Peripheral vascular disease, unspecified; F03.90 Unspecified dementia, unspecified severity, without behavioral disturbance, psychotic disturbance, mood disturbance, and anxiety; E11.51 Type 2 diabetes mellitus with diabetic peripheral angiopathy without gangrene; M19.90 Unspecified osteoarthritis, unspecified site; E78.5 Hyperlipidemia, unspecified; F17.210 Nicotine dependence, cigarettes, uncomplicated; Z88.8 Allergy status to other drugs, medicaments and biological substances; Z95.1 Presence of aortocoronary bypass graft; Z72.89 Other problems related to lifestyle; Z79.899 Other long term (current) drug therapy ==

== ENCOUNTER 2021-01-07 22:48 | Emergency (ER) | payer OTHER ==
[~2021-01-07] VITALS: Ht 185.4 cm; Wt 77.1 kg
--- NOTE | ~2021-01-07 | EMS ---
[address] [address] EMS Patient Care Report Name: RIN MACDONALD Room #: PRE M.R.#: [id number] Admission: Attend Phys: Discharge: Date of : 47 Report #: [id number] THIS REPORT FOR: //name// Report Transmitted: 01/07/2021 23:01 EMS Care Summary [place], [place] Incident [id number] @ 01/07/2021 21:45 Incident Location [address] [place] [address] Patient RIN MACDONALD Male, 75 Years 1945 Patient Address [address] [place] [address] Patient History Alzheimer's,Atrial Fibrillation, Patient Allergies No known allergies, Patient Medications Clopidogrel, Amiodarone, Rosuvastatin, Bystolic, Chief Complaint "FEELS OFF" Disposition Transported No Lights/Tangent Dispatch Reason Sick Person Transported To [facility] Narrative EMS WAS CALLED FOR THE REPORT OF A MALE PATEINT WHO JUST FELT OFF STATED BY THE PATIENT AND HIS . THE PATEINT HAS NO ACUTAL COMPLAINT JUST THAT HE FELT OFF WE DID A FULL ASSESMENT, EVERYTHING CHECKED OUT NORMAL, PATIENT WAS ALSO A BIT MORE CONFUSED THEN NORMAL STATED BY HIS . THE PATIENT DOES HAVE [address] [address] EMS Patient Care Report Name: RIN MACDONALD Room #: PRE Silvio.#: [id number] Admission: Attend Phys: Discharge: Date of : 47 Report #: [id number] HISTORY OF [facility]. WE THEN [facility]. WE THEN LEFT TO THE HOSPITAL I CALLED BEFORE WE ARRIVED. WE THEN ARRIVED AND BEDSIDE REPORT WAS GIVEN TO RN. Initial Vitals @22:24P: 74,R: 14,BP: 169/74,Pain: 0/10,GCS: 14,Glucose: 197,SpO2: 94,Revised Trauma: 12,MN Suspected: false @22:25P: 73,R: 13,BP: 169/83,Pain: 0/10,GCS: 14,SpO2: 96,Revised Trauma: 12,MN Suspected: false @22:41P: 75,R: 20,Pain: 0/10,GCS: 14,SpO2: 98,MN Suspected: false @22:38P: 73,R: 20,BP: 166/78,Pain: 0/10,GCS: 14,CO: 3,SpO2: 96,Revised Trauma: 12,MN Suspected: false Assessments @22:33MENTAL:Confused,Event Oriented,Person Oriented,Place Oriented,SKIN:HEENT:Head/Face: No Abnormalities,Neck/Airway: No Abnormalities,LUNG SOUNDS:General: No Abnormalities,ABDOMEN:General: No Abnormalities,PELVIS//GI:No Abnormalities,EXTREMITIES:Capillary Refill: Right Upper: < 2 Sec,Capillary Refill: Right Lower: < 2 Sec,Capillary Refill: Left Lower: < 2 Sec,Capillary Refill: Left Upper: < 2 Sec,Left Arm: No Abnormalities,Right Arm: No Abnormalities,Left Leg: No Abnormalities,Right Leg: No Abnormalities,PULSE:Radial: 2+ Normal,NEURO:No Abnormalities, Impression Need for continuous medical supervision Procedures @22:253-Lead ECGResponse: UnchangedSucceeded@22:28ALS AssessmentResponse: ImprovedSucceeded Timeline 21:43,Call Received 21:43,Dispatch Notified 21:45,Dispatched 21:45,En Route 22:07,On Scene 22:10,At Patient 22:24,BP: 169/74 M,PULSE: 74,RR: 14 R,SPO2: 94 Ox,ETCO2: ,B,PAIN: 0,GCS: 14, 22:25,3-Lead ECG,Response: UnchangedSucceeded, 22:25,BP: 169/83 M,PULSE: 73,RR: 13 R,SPO2: 96 Ox,ETCO2: ,BG: ,PAIN: 0,GCS: 14, 22:25,Depart Scene 22:28,ALS Assessment,Response: ImprovedSucceeded, 22:38,BP: 166/78 M,PULSE: 73,RR: 20 R,SPO2: 96 Ox,ETCO2: ,BG: ,PAIN: 0,GCS: 14, 22:41,BP: / M,PULSE: 75,RR: 20 R,SPO2: 98 Ox,ETCO2: ,BG: ,PAIN: 0,GCS: 14, 23:16,At Destination 23:18,Call Closed [facility] [address] [facility] [place] [address] EMS Patient Care Report Name: RIN MACDONALD Room #: PRE M.R.#: [id number] Admission: Attend Phys: Discharge: Date of : 47 Report #: [id number] Disclaimer v1.1 Copyright 2020 [employer] This EMS Care Summary contains data elements from the applicable legal record (which may be displayed differently). It is designed to provide pertinent information for the following purposes: continuity of care, clinical quality, and state data reporting. The complete legal record is available to ED staff and administrators of the receiving hospital in [employer]'s Patient Tracker. All data is provided "as is."
[2021-01-07 23:53] LABS: HEMATOCRIT 36.4 % (42.0-52.0); HEMOGLOBIN 12.1 gm/dL (14.0-18.0); MCH 33.7 pg (26.0-34.0); MCHC 33.1 g/dL (28.0-37.0); MCV 101.7 fL (80.0-100.0); RBC 3.58 mil/uL (4.50-6.00); RDW 14.8 % (10.5-14.5); WBC 11.5 thou/uL (4.0-11.0)
[2021-01-08] LABS: ANION GAP 4 mmol/L (7-16); BUN 9 mg/dL (7-18); CALCIUM 8.4 mg/dL (8.5-10.1); CHLORIDE 105 mmol/L (98-107); CO2 30 mmol/L (21-32); CREATININE 1.4 mg/dL (0.7-1.3); GLUCOSE 137 mg/dL (74-106); POTASSIUM 3.5 mmol/L (3.5-5.1); SODIUM 139 mmol/L (136-145)
[2021-01-08 00:11] LABS: ALBUMIN 3.2 g/dL (3.4-5.0); MAGNESIUM 1.8 mg/dL (1.8-2.4); SALICYLATE < 2.8 mg/dL (2.8-20.0); SGOT 14 U/L (15-37); SGPT 15 U/L (16-63); TOTAL BILIRUBIN 0.7 mg/dL (0.2-1.0); TOTAL PROTEIN 6.6 g/dL (6.4-8.2)
[2021-01-08 02:16] LABS: URINE BILIRUBIN NEGATIVE (Negative); URINE BLOOD NEGATIVE (Negative); URINE CLARITY CLEAR; URINE COLOR YELLOW; URINE GLUCOSE-RANDOM* NEGATIVE (Negative); URINE KETONES NEGATIVE (Negative); URINE LEUKOCYTES-REFLEX NEGATIVE (Negative); URINE NITRITE-REFLEX NEGATIVE (Negative); URINE PROTEIN (DIPSTICK) 1+ (Negative)
[2021-01-08 02:25] LABS: AMP/METHAMP Negative (Negative); BARBITURATES Negative (Negative); BENZODIAZEPINES Negative (Negative); COCAINE Negative (Negative); METHADONE Negative (Negative); OPIATES Negative (Negative); PCP Negative (Negative)
[2021-01-08 03:03] LABS: BACTERIA-REFLEX 1-9 Few /HPF (None Seen); CRYSTALS None Seen /LPF (None Seen); HYALINE CASTS 0-3 Few /LPF (None Seen); MUCUS 4-6 Moderate strn/LPF (None Seen); SQUAMOUS 4-10 Moderate /LPF (0-3); URINE RBC 3-10 Few /HPF (NONE SEEN); URINE WBC-REFLEX 0-5 Rare /HPF (0-5)
[2021-01-08 04:41] VITALS: BP 163/75
--- NOTE | 2021-01-09 07:28 | EKG ---
[facility] [place] [address] ELECTROCARDIOGRAM REPORT Name: RIN MACDONALD [id number] Admission: 01/07/21 Attend Phys: Discharge: 01/08/21 Date of : 47 Report #: [id number] [facility] ED Test Date: 2021-01-07 Test Time: 23:29:14 Pat Name: RIN MACDONALD Department: Room: Gender: M Inspector Cold Working: GIUSEPPE : 1945 Requested By: Kalyan Solano Order Number: [id number] MD: Cristobal Samayoa Measurements Intervals [place] Rate: 66 P: -12 UT: 202 QRS: -58 QRSD: 135 T: 2 QT: 516 QTc: 541 Interpretive Statements Sinus rhythm Nonspecific IVCD with LAD LVH with secondary repolarization abnormality Compared to ECG 07/26/2020 21:42:04 Intraventricular conduction delay now present Left ventricular hypertrophy now present Early repolarization now present Electronically Signed On 01-09-2021 7:28:33 CDT by Cristobal Samayoa [email or web address] <ELECTRONICALLY SIGNED> By: Cristobal Samayoa MD, [facility] [id number] 28 Cristobal Samayoa MD, [facility] /EPI
== END 2021-01-08 04:42 | disposition home or self-care (01) ==
LOC: ER 22:48
PROVIDERS: Emergency Medicine
DX: R41.0 Disorientation, unspecified (principal); F03.90 Unspecified dementia, unspecified severity, without behavioral disturbance, psychotic disturbance, mood disturbance, and anxiety; E78.5 Hyperlipidemia, unspecified; I10 Essential (primary) hypertension; J44.9 Chronic obstructive pulmonary disease, unspecified; F17.210 Nicotine dependence, cigarettes, uncomplicated; Z90.89 Acquired absence of other organs; Z90.49 Acquired absence of other specified parts of digestive tract; Z88.6 Allergy status to analgesic agent; Z79.2 Long term (current) use of antibiotics; Z79.82 Long term (current) use of aspirin; Z79.899 Other long term (current) drug therapy

== ENCOUNTER 2021-03-04 20:17 | Emergency (ER) | payer OTHER ==
[~2021-03-04] VITALS: Ht 182.9 cm; Wt 74.8 kg
[2021-03-04 20:42] LABS: ABSOLUTE NEUTROPHILS 4.4 thou/uL (1.4-8.2); BASOPHILS 0.5 % (0.0-2.0); EOSINOPHILS 0.8 % (0.0-3.0); HEMATOCRIT 36.6 % (42.0-52.0); HEMOGLOBIN 12.1 gm/dL (14.0-18.0); LYMPHOCYTES 16.8 % (24.0-44.0); MCH 34.6 pg (26.0-34.0); MCHC 33.2 g/dL (28.0-37.0); MCV 104.4 fL (80.0-100.0); MONOCYTES 9.8 % (1.0-8.0); PLATELET COUNT 147 thou/uL (150-400); POLYS 72.1 % (36.0-66.0); RDW 13.6 % (10.5-14.5); WBC 6.1 thou/uL (4.0-11.0)
[2021-03-04 20:54] LABS: CALCIUM 8.2 mg/dL (8.5-10.1); CREATININE 1.2 mg/dL (0.7-1.3); POTASSIUM 3.1 mmol/L (3.5-5.1)
[2021-03-04 22:55] LABS: URINE BILIRUBIN NEGATIVE (Negative); URINE BLOOD NEGATIVE (Negative); URINE CLARITY CLEAR; URINE COLOR YELLOW; URINE GLUCOSE-RANDOM* NEGATIVE (Negative); URINE KETONES NEGATIVE (Negative); URINE LEUKOCYTES-REFLEX NEGATIVE (Negative); URINE NITRITE-REFLEX NEGATIVE (Negative); URINE PROTEIN (DIPSTICK) NEGATIVE (Negative); URINE SPECIFIC GRAVITY <= 1.005 (1.005-1.035); URINE UROBILINOGEN 0.2 E.U./dl (0.2-1.0)
[2021-03-05 00:04] VITALS: BP 152/94
--- NOTE | 2021-03-06 07:31 | EKG ---
[place] [address] [place] [address] ELECTROCARDIOGRAM REPORT Name: RIN MACDONALD [facility] [id number] Admission: 03/04/21 Attend Phys: Discharge: 03/05/21 Date of : 47 Report #: [id number] [facility] ED Test Date: 2021-03-04 Test Time: 20:25:39 Pat Name: RIN MACDONALD Department: Room: Gender: M Table Games Floor Supervisor: shyam : 1945 Requested By: Cyndi Ortega Order Number: [id number] MD: Cristobal Samayoa Measurements Intervals [place] Rate: 98 P: [place]: QRS: -56 QRSD: 129 T: 128 QT: 384 QTc: 491 Interpretive Statements Atrial fibrillation LVH with IVCD, LAD and secondary repol abnrm Baseline wander in lead(s) II,III,aVF Compared to ECG 01/07/2021 23:29:14 Sinus rhythm no longer present Electronically Signed On 03-06-2021 7:31:12 CDT by Cristobal Samayoa [email or web address] <ELECTRONICALLY SIGNED> By: Cristobal Samayoa MD, [facility] 03/06/21 0731 24 24 Cristobal Samayoa MD, [facility] /EPI
== END 2021-03-05 00:07 | disposition home or self-care (01) ==
LOC: ER 20:17
PROVIDERS: Emergency Medicine
DX: I48.20 Chronic atrial fibrillation, unspecified (principal); R42 Dizziness and giddiness; E87.6 Hypokalemia; I73.9 Peripheral vascular disease, unspecified; E78.5 Hyperlipidemia, unspecified; J44.9 Chronic obstructive pulmonary disease, unspecified; I13.0 Hypertensive heart and chronic kidney disease with heart failure and stage 1 through stage 4 chronic kidney disease, or unspecified chronic kidney disease; N18.9 Chronic kidney disease, unspecified; I50.9 Heart failure, unspecified; I42.9 Cardiomyopathy, unspecified; F17.210 Nicotine dependence, cigarettes, uncomplicated; Z95.1 Presence of aortocoronary bypass graft; Z90.49 Acquired absence of other specified parts of digestive tract; Z98.890 Other specified postprocedural states; Z79.891 Long term (current) use of opiate analgesic; Z79.899 Other long term (current) drug therapy; Z91.048 Other nonmedicinal substance allergy status

== ENCOUNTER → 2021-03-17 | Outpatient (CLI) | payer OTHER | LOC: SJCVC 11:29 | PROVIDERS: ATTEND Internal Medicine Cardiovascular Disease | DX: I11.9 Hypertensive heart disease without heart failure (principal); R94.31 Abnormal electrocardiogram [ECG] [EKG]; I48.0 Paroxysmal atrial fibrillation; I25.10 Atherosclerotic heart disease of native coronary artery without angina pectoris; E78.00 Pure hypercholesterolemia, unspecified; I77.9 Disorder of arteries and arterioles, unspecified; I73.9 Peripheral vascular disease, unspecified; I70.1 Atherosclerosis of renal artery; I65.23 Occlusion and stenosis of bilateral carotid arteries; I71.4 Abdominal aortic aneurysm, without rupture; M81.0 Age-related osteoporosis without current pathological fracture; F10.20 Alcohol dependence, uncomplicated; J44.9 Chronic obstructive pulmonary disease, unspecified; F17.210 Nicotine dependence, cigarettes, uncomplicated; E78.5 Hyperlipidemia, unspecified; Z95.1 Presence of aortocoronary bypass graft; Z86.73 Personal history of transient ischemic attack (TIA), and cerebral infarction without residual deficits; Z98.890 Other specified postprocedural states; Z90.3 Acquired absence of stomach [part of]; Z79.82 Long term (current) use of aspirin; Z79.899 Other long term (current) drug therapy; Z88.8 Allergy status to other drugs, medicaments and biological substances ==

== ENCOUNTER → 2021-04-25 | Outpatient (CLI) | payer OTHER | END | disposition home or self-care (01) | LOC: SJCVCIMAG 10:45 | PROVIDERS: ATTEND Internal Medicine Cardiovascular Disease | DX: I08.1 Rheumatic disorders of both mitral and tricuspid valves (principal); I65.23 Occlusion and stenosis of bilateral carotid arteries; F17.210 Nicotine dependence, cigarettes, uncomplicated; R94.31 Abnormal electrocardiogram [ECG] [EKG]; J44.9 Chronic obstructive pulmonary disease, unspecified; I48.91 Unspecified atrial fibrillation; I42.9 Cardiomyopathy, unspecified; I10 Essential (primary) hypertension; I70.1 Atherosclerosis of renal artery; D68.59 Other primary thrombophilia; I73.9 Peripheral vascular disease, unspecified; Z95.828 Presence of other vascular implants and grafts; Z90.49 Acquired absence of other specified parts of digestive tract; Z98.890 Other specified postprocedural states ==

== ENCOUNTER 2021-06-19 17:44 | Emergency (ER) | payer OTHER ==
[~2021-06-19] VITALS: Ht 180.3 cm; Wt 72.6 kg
[2021-06-19 18:26] LABS: ABSOLUTE NEUTROPHILS 4.5 thou/uL (1.4-8.2); BASOPHILS 0.5 % (0.0-2.0); EOSINOPHILS 1.8 % (0.0-3.0); HEMATOCRIT 36.2 % (42.0-52.0); HEMOGLOBIN 12.1 gm/dL (14.0-18.0); LYMPHOCYTES 16.9 % (24.0-44.0); MCH 34.9 pg (26.0-34.0); MCHC 33.3 g/dL (28.0-37.0); MCV 104.9 fL (80.0-100.0); PLATELET COUNT 175 thou/uL (150-400); POLYS 69.8 % (36.0-66.0); RBC 3.45 mil/uL (4.50-6.00); RDW 13.7 % (10.5-14.5); WBC 6.5 thou/uL (4.0-11.0)
[2021-06-19 18:35] LABS: CALCIUM 8.8 mg/dL (8.5-10.1); CREATININE 1.2 mg/dL (0.7-1.3); POTASSIUM 3.3 mmol/L (3.5-5.1)
[2021-06-19 18:44] LABS: ALBUMIN 3.5 g/dL (3.4-5.0); TOTAL BILIRUBIN 0.4 mg/dL (0.2-1.0); TOTAL PROTEIN 6.9 g/dL (6.4-8.2)
[2021-06-19 19:11] LABS: PROTIME 10.3 Seconds (9.3-11.4)
[2021-06-19 19:31] LABS: URINE BILIRUBIN NEGATIVE (Negative); URINE BLOOD NEGATIVE (Negative); URINE CLARITY CLEAR; URINE COLOR YELLOW; URINE GLUCOSE-RANDOM* NEGATIVE (Negative); URINE KETONES NEGATIVE (Negative); URINE LEUKOCYTES-REFLEX NEGATIVE (Negative); URINE NITRITE-REFLEX NEGATIVE (Negative); URINE PROTEIN (DIPSTICK) TRACE (Negative); URINE UROBILINOGEN 0.2 E.U./dl (0.2-1.0)
[2021-06-19] MEDS ORDERED: BYSTOLIC10 MG PO (19:48)
[2021-06-19 20:59] VITALS: BP 108/54
--- NOTE | 2021-06-20 07:40 | EKG ---
[place] [address] [place] [address] ELECTROCARDIOGRAM REPORT Name: RIN MACDONALD [facility] [id number] Admission: 06/19/21 Attend Phys: Discharge: 06/19/21 Date of : 47 Report #: [id number] [facility] ED Test Date: 2021-06-19 Test Time: 17:47:25 Pat Name: RIN MACDONALD Department: Room: Gender: M Medical Record Coder: : 1945 Requested By: Cyndi Ortega Order Number: [id number] MD: Severo Bhat Measurements Intervals [place] Rate: 103 P: MD: QRS: -59 QRSD: 127 T: 54 QT: 390 QTc: 511 Interpretive Statements Atrial fibrillation Nonspecific IVCD with LAD Early R wave progression Compared to ECG 03/04/2021 20:25:39 Early R wave progression is now present Electronically Signed On 06-20-2021 7:40:43 HISTORIC SITES REGISTRAR by Severo Bhat [email or web address] <ELECTRONICALLY SIGNED> By: Severo Bhat MD, [facility] 06/20/21 0740 1747 1747 Severo Bhat MD, FACC /EPI
== END 2021-06-19 21:09 | disposition home or self-care (01) ==
LOC: ER 17:44
PROVIDERS: Emergency Medicine
DX: I48.20 Chronic atrial fibrillation, unspecified (principal); Z20.822 Contact with and (suspected) exposure to COVID-19; R55 Syncope and collapse; I73.9 Peripheral vascular disease, unspecified; E78.5 Hyperlipidemia, unspecified; J44.9 Chronic obstructive pulmonary disease, unspecified; I42.9 Cardiomyopathy, unspecified; F02.80 Dementia in other diseases classified elsewhere, unspecified severity, without behavioral disturbance, psychotic disturbance, mood disturbance, and anxiety; I12.9 Hypertensive chronic kidney disease with stage 1 through stage 4 chronic kidney disease, or unspecified chronic kidney disease; N18.9 Chronic kidney disease, unspecified; F17.210 Nicotine dependence, cigarettes, uncomplicated; Z90.89 Acquired absence of other organs; Z86.73 Personal history of transient ischemic attack (TIA), and cerebral infarction without residual deficits; Z95.1 Presence of aortocoronary bypass graft; Z98.890 Other specified postprocedural states; Z79.82 Long term (current) use of aspirin; Z79.899 Other long term (current) drug therapy; Z79.891 Long term (current) use of opiate analgesic; Z91.09 Other allergy status, other than to drugs and biological substances